=== PATIENT | female | born 1955 | race African-American/Black ===

== ENCOUNTER → 2017-04-05 | Outpatient (CLI) | payer MEDICARE, MEDICAID ==
[~2017-04-05] MED LIST: ACET1TAB14 GT; ASPI325T2 PO; ASPI81TA2 PO; ATOR80TA76 PO; CLOP75TA33 PO; EZET10TA PO; FOLI-43 PO; LISI2.5T47 PO; LORA10TA7 PO; NITR0.4T SL; PARO40TA PO
== END | disposition home or self-care (01) ==
LOC: MAMMO 10:51
PROVIDERS: ATTEND Specialist
DX: Z12.31 Encounter for screening mammogram for malignant neoplasm of breast (principal)
CPT/HCPCS: G0202

== ENCOUNTER 2019-02-10 02:16 | Emergency (ER) | payer MEDICARE, MEDICAID ==
[~2019-02-10] VITALS: Ht 154.9 cm; Wt 79.0 kg
[~2019-02-10 02:16] MED LIST changes: +ASPI-1160 PO; +ASPI-986 PO; -ASPI325T2 PO; -ASPI81TA2 PO; +ATOR-2 PO; -ATOR80TA76 PO; -EZET10TA PO; +ZET10 PO
[2019-02-10] MEDS ORDERED: ACETAMINOPHEN 325MG TABLET PO ONE (04:00)
[2019-02-10 04:21] VITALS: BP 134/84
== END 2019-02-10 04:23 | disposition home or self-care (01) ==
LOC: ER 02:16
DX: N81.4 Uterovaginal prolapse, unspecified (principal); E78.00 Pure hypercholesterolemia, unspecified; I51.9 Heart disease, unspecified; Z79.82 Long term (current) use of aspirin
CPT/HCPCS: 99283

== ENCOUNTER → 2020-01-30 | Outpatient (CLI) | payer MEDICARE, MEDICAID ==
[~2020-01-30] MED LIST changes: +EZET10TA13 PO; -ZET10 PO
== END | disposition home or self-care (01) ==
LOC: US 09:24
PROVIDERS: ATTEND Obstetrics & Gynecology Obstetrics
DX: C54.1 Malignant neoplasm of endometrium (principal); N85.7 Hematometra
CPT/HCPCS: 76830; 76856

== ENCOUNTER 2020-02-24 20:27 | Emergency (ER) | payer MEDICARE, MEDICAID ==
[~2020-02-24] VITALS: Ht 154.9 cm; Wt 80.0 kg
[2020-02-24] MEDS ORDERED: SODIUM CHLORIDE 0.9% 1,000 ML IV ONE (22:46)
[2020-02-24 22:55] LABS: CLARITY URINE CLOUDY (CLEAR); COLOR URINE DK YELLOW (YELLOW); KETONES URINE TRACE (NEGATIVE); LEUKOCYTE ESTERASE URINE TRACE (NEGATIVE); NITRITE URINE NEGATIVE (NEGATIVE); OCCULT BLOOD URINE NEGATIVE (NEGATIVE); PROTEIN URINE 2+ (NEGATIVE); SPECIFIC GRAVITY URINE 1.021 (1.005-1.030); UROBILINOGEN URINE 0.2 E.U./dL (0.2-1.0)
[2020-02-24 23:08] LABS: BASOPHILS % 0.6 % (0.0-2.0); HEMOGLOBIN. 14.7 g/dL (12.0-16.0); LYMPHOCYTES % 27.4 % (20.0-50.0); MEAN CORPUSCULAR HEMOGLOBIN 32.9 pg (28.0-32.0); MEAN CORPUSCULAR VOLUME 94.2 fL (81.0-99.0); MEAN PLATELET VOLUME 9.2 fl (7.4-10.4); MONOCYTES % 7.6 % (2.0-8.0); NEUTROPHILS % 64.4 % (40.0-76.0); PLATELET 148 x1000/uL (130-400); RED BLOOD CELL COUNT 4.46 mill/uL (4.2-5.4); RED CELL DISTRIBUTION WIDTH 13.5 % (11.6-14.6)
[2020-02-24 23:14] VITALS: BP 96/50
[2020-02-24 23:14] LABS: CHLORIDE 99 mEq/L (98-107)
== END 2020-02-25 01:26 | disposition home or self-care (01) ==
LOC: ER 20:27
DX: N39.0 Urinary tract infection, site not specified (principal); I10 Essential (primary) hypertension; I25.10 Atherosclerotic heart disease of native coronary artery without angina pectoris
CPT/HCPCS: 36415; 80053; 81003; 83690; 85025; 85610; 99283; J7030

== ENCOUNTER 2020-03-26 13:18 | Emergency (ER) | payer MEDICARE, MEDICAID ==
[~2020-03-26] VITALS: Ht 162.6 cm; Wt 77.0 kg
[2020-03-26] MEDS ORDERED: AMOXICILLIN/POTASSIUM CLAVULANATE 875/125MG TAB PO ONE (13:45)
[2020-03-26] MEDS ORDERED: TRAMADOL 50MG TABLET PO ONE (13:45)
[2020-03-26] MEDS ORDERED: TETANUS, DIPHTHERIA, PERTUSSIS VAC/PF 0.5ML (>7YR OLD) IM ONE (13:45)
[2020-03-26 13:59] VITALS: BP 160/70
== END 2020-03-26 16:03 | disposition home or self-care (01) ==
LOC: ER 13:18
DX: S61.051A Open bite of right thumb without damage to nail, initial encounter (principal); W54.0XXA Bitten by dog, initial encounter; Y93.89 Activity, other specified; Y92.89 Other specified places as the place of occurrence of the external cause; I50.9 Heart failure, unspecified; I25.10 Atherosclerotic heart disease of native coronary artery without angina pectoris; Z95.5 Presence of coronary angioplasty implant and graft; Z23 Encounter for immunization
CPT/HCPCS: 29125; 73140; 90471; 90715; 99283

== ENCOUNTER 2022-02-24 06:05 | Day surgery (SDC) | payer MEDICARE, MEDICAID ==
[~2022-02-24] VITALS: Ht 154.9 cm; Wt 77.1 kg
[2022-02-24] MEDS ORDERED: LACTATED RINGERS 1,000 ML IV SCH (06:15)
[2022-02-24 07:24] LABS: UCG SCREEN NEGATIVE
[2022-02-24] MEDS ORDERED: ERGO50CA PO (08:06)
[2022-02-24] MEDS ORDERED: [UNRECOGNIZED DRUG - REMARK] SUBCUT (08:06)
[2022-02-24] MEDS ORDERED: FOLI-43 MT (08:06)
[2022-02-24] MEDS ORDERED: FENTANYL CITRATE/PF 50MCG/ML 2ML VIAL ONE (08:40)
[2022-02-24] MEDS ORDERED: MIDAZOLAM HCL 2 MG/2 ML VIAL ONE (08:40)
[2022-02-24] MEDS ORDERED: ONDANSETRON HCL 4MG/2ML INJ ONE ×2 (10:19→12:40)
[2022-02-24] MEDS ORDERED: DEXAMETHASONE 4MG/ML 1ML VIAL ONE (12:40)
[2022-02-24] MEDS ORDERED: GLYCOPYRROLATE 0.2 MG/ML 2ML VIAL ONE (12:47)
== END 2022-02-24 16:00 | disposition home or self-care (01) ==
LOC: OR 06:05
PROVIDERS: ATTEND Obstetrics & Gynecology Obstetrics
DX: N95.0 Postmenopausal bleeding (principal); E78.00 Pure hypercholesterolemia, unspecified; I25.2 Old myocardial infarction; Z79.899 Other long term (current) drug therapy; Z98.890 Other specified postprocedural states; Z20.822 Contact with and (suspected) exposure to COVID-19; Z79.82 Long term (current) use of aspirin; Z82.49 Family history of ischemic heart disease and other diseases of the circulatory system
CPT/HCPCS: 58558; 81025; 87426; 88305; J1100; J2405; J3490; J2250; J3010

== ENCOUNTER 2023-08-02 13:53 | Emergency (ER) | payer MEDICARE, MEDICAID ==
[~2023-08-02] VITALS: Ht 154.9 cm; Wt 72.1 kg
[~2023-08-02 13:53] MED LIST changes: -ACET1TAB14 GT; -ASPI-986 PO; +ERGO50CA PO; -EZET10TA13 PO; +FOLI-43 MT; -FOLI-43 PO; -LISI2.5T47 PO; -LORA10TA7 PO; -NITR0.4T SL; -PARO40TA PO; +[UNRECOGNIZED DRUG - REMARK] SUBCUT
[2023-08-02 14:40] VITALS: TEMP 98.5; O2SAT 99
[2023-08-02 16:00] VITALS: BP 120/69; PULSE 76; RESP 18
[2023-08-02] MEDS ORDERED: KETOROLAC 30MG/ML VIAL IM ONE (16:00)
[2023-08-02] MEDS ORDERED: METHOCARBAMOL 500MG TABLET PO ONE (16:00)
[2023-08-02] MEDS ORDERED: LIDO1ADH71 TOP (18:33)
[2023-08-02] MEDS ORDERED: TRAM50TA3 MT (18:33)
[2023-08-02] MEDS ORDERED: HYDR-4001 MT (18:33)
== END 2023-08-02 20:25 | disposition home or self-care (01) ==
LOC: ER 14:04
DX: M48.56XA Collapsed vertebra, not elsewhere classified, lumbar region, initial encounter for fracture (principal); I25.2 Old myocardial infarction
CPT/HCPCS: 99285; 72131; 96372; J1885